=== PATIENT | female | born 1965 | race African-American/Black ===

== ENCOUNTER 2017-03-08 11:39 | Emergency (ER) | payer OTHER ==
[~2017-03-08] VITALS: Ht 170.2 cm; Wt 131.5 kg
== END 2017-03-08 13:03 | disposition home or self-care (01) ==
LOC: CED 11:39 → CFTX 11:39 → CED 13:03
DX: J04.0 Acute laryngitis (principal); I10 Essential (primary) hypertension; G43.909 Migraine, unspecified, not intractable, without status migrainosus; R00.1 Bradycardia, unspecified; Z88.0 Allergy status to penicillin
CPT/HCPCS: 87651; 99283; J1100

== ENCOUNTER 2017-04-12 17:35 | Observation (INO) | payer OTHER ==
[~2017-04-12] VITALS: Ht 170.2 cm; Wt 133.8 kg
--- NOTE | ~2017-04-12 | HP ---
Unit #: [id number] #: [id number] Patient: ANDREIA MORALES [id number] [address] [address] [id number] I MR#: [id number] NAME: ANDREIA MORALES. ROOM: 571 Age: 52 Sex: F Admission Date: 04/13/2017 : 1965 Attending Physician: Wilmar Hernandez M.D. Primary Care Physician: No Primary Care Physician HISTORY AND PHYSICAL CHIEF COMPLAINT Chest discomfort. HISTORY OF PRESENT ILLNESS Ms. Morales is a 52-year-old female who presents with complaints of chest discomfort. She states it started the night before last. It is sharp. It was constant. It is now resolved. It was across her chest. No shortness of air. No nausea. No vomiting, but she did have diarrhea. It was described as a sharp, squeezing pressure type pain. In the emergency room she received aspirin 325 mg, nitroglycerin sublingual, 1 inch nitroglycerin past, and Zofran. She also underwent a CT of the chest PE protocol. PAST MEDICAL HISTORY 1. Hypertension. 2. Migraines. 3. Anxiety. 4. Cardiovascular risk factors positive for hypertension, negative for diabetes, negative for dyslipidemia, negative for tobacco abuse, negative for premature arteriosclerotic heart disease in first degree relatives. PAST SURGICAL HISTORY 1. Cholecystectomy. 2. Bilateral tubal ligation. 3. Ankle surgery. SOCIAL HISTORY No tobacco. No alcohol. Denies illicit drug use. FAMILY HISTORY Mother has diabetes and congestive heart failure. ALLERGIES Penicillin. HOME MEDICATIONS 1. Carvedilol 12.5 mg daily. 2. Inderal 20 mg nightly. 3. Citalopram 10 mg daily. 4. Meloxicam 15 mg daily. 5. Topamax 100 mg nightly. REVIEW OF SYSTEMS Unit #: [id number] #: [id number] Patient: ANDREIA MORALES See history of present illness. Negative for fever. Negative for chills. No cough. No asthma. No COPD. No difficulty swallowing. No lower extremity edema. No orthopnea. No paroxysmal nocturnal dyspnea. No hematuria. No melena. No gait disturbance. PHYSICAL EXAMINATION GENERAL: Well-developed, well-nourished, obese female in no acute distress. VITALS: Temperature 98.3, pulse 61, respiratory rate 18, blood pressure 129/64, O2 saturation 99% on room air. Height 5'7", weight 133.8 kg. BMI 46. HEENT: Normocephalic, atraumatic. No xanthelasma. Pupils equal, round and reactive to light Extraocular movements intact. NECK: Supple. No jugular venous distension. No elevated CBC. LUNGS: Clear to auscultation anteriorly and posteriorly bilaterally, all yang. HEART: S1 and S2. No S3 or S4. No murmurs, rubs or gallops. ABDOMEN: Positive bowel sounds. Obese. No clubbing, cyanosis or edema. EXTREMITIES: Two plus pulses bilaterally all extremities. SPINE: No scoliosis. NEUROLOGIC: Awake, alert and oriented times three. Speech clear and appropriate. No facial drooping. Equal strength bilaterally. DIAGNOSTIC STUDIES IMAGING: CT of the chest, PE protocol, no evidence of pulmonary embolism. An 11 mm indeterminate pulmonary nodule in the central left lower lobe. Recommend follow-up CT in three months or PET CT. No pulmonary infiltrates. No adenopathy. LABORATORY: Sodium 138, potassium 3.4, chloride 103, CO2 26, BUN 13, creatinine 1.0, glucose 89, BUN 13, creatinine 1.0, glucose 89, total protein 7.2, albumin 3.8, AST 19, ALT 15, alkaline phosphatase 54, troponin less than 0.03, brain natriuretic peptide 16, d-dimer 616. The patient has a history of elevated d-dimer back in 2004. Nvvyx-gq-byco troponin less than 0.05 and less than 0.05. Hemoglobin 12.7, hematocrit 38.8, white blood cell count 7.3, platelet count 281. CARDIOVASCULAR: 12-lead EKG shows normal sinus rhythm. Ventricular rate of 80. No ST depression. No ST elevation. Anterolateral T wave abnormality. ASSESSMENT/PLAN 1. Chest discomfort with troponin negative times three. EKG with ischemic changes. Cardiolite treadmill stress test has been ordered. Echo has been ordered. The patient does have a history of a normal stress test back in 2004. 2. History of hypertension. We will add a lipid panel to blood in lab as well as a hemoglobin A1c. Dr. Hernandez to follow for any further recommendations. Dictated by Angela Barrett, Sharyn.Jonathan. for Wilmar Hernandez M.D. [facility]/gz TD: 04/13/2017 10:50 Unit #: [id number] #: [id number] Patient: ANDREIA MORALES JOB #: [id number] HISTORY AND PHYSICAL Page 1 of 1 X X HISTORY AND PHYSICAL
--- NOTE | ~2017-04-12 | TH ---
Unit #: [id number] #: [id number] Patient: ANDREIA MORALES [id number] [address] [address] [id number] I MR#: [id number] NAME: ANDREIA MORALES : 1965 SEX: F STUDY DATE/TIME: 04/13/2017 UNIT: [facility] ROOM: 571 STUDY DESCRIPTION: Lexiscan stress test - Nuclear Attending Physician: Wilmar Hernandez M.D. Primary Care Physician: No Primary Care Physician CARDIOLOGY REPORT PROCEDURE PERFORMED Lexiscan Cardiolite stress test - Nuclear portion. PROCEDURE Using technetium 99m-labeled Cardiolite, rest and stress SPECT images were obtained. Multiple SPECT images were obtained in various views, including horizontal and vertical long axis and short axis views of the left ventricle. Images were obtained by gated SPECT method. Patient was administered 10.71 mCi of Cardiolite at rest. Patient was administered 33.6 mCi of Cardiolite after Lexiscan infusion was completed. On the stress images, there is normal perfusion noted. The rest images show normal perfusion. Comparing the rest and stress images, there is no stress-induced ischemia noted. The left ventricular ejection fraction is calculated to be 56%. There is no focal wall motion abnormality seen. CONCLUSION 1. No stress-induced ischemia noted. 2. The left ventricular ejection fraction is calculated to be 56%. 3. There is no focal wall motion abnormality seen. 4. Normal Lexiscan Cardiolite stress test. Dictated by... Michael Garcia TD: 04/13/2017 15:29 JOB #: [id number] CARDIOLOGY REPORT Page 1 of 1 X Suma Azevedo MD <ELECTRONICALLY SIGNED> 05/03/17 1524 CARDIOLOGY REPORT
--- NOTE | ~2017-04-12 | CT16 ---
[facility] A Service of [facility] RADIOLOGY TEXT RESULTS PATIENT: ANDREIA MORALES LOCATION: [facility] : [birth year] UNIT #: [id number] AGE: [address]: Wilmar Hernandez MD SEX: F ORDER DR: [id number] [facility]. [place], [place] [address] [id number] I MR#: [id number] Acc #: [id number] NAME: ANDREIA MORALES. : 1965 SEX: F STUDY DATE/TIME: 04/12/2017 22:43 UNIT: [facility] ROOM: [facility] STUDY DESCRIPTION: CT Angio Chest for PE Attending Physician: Wilmar Hernandez M.D. Ordering Physician: Radha Baron M.D. Primary Care Physician: No Primary Care Physician MEDICAL IMAGING REPORT This report is preliminary unless electronic signature is present EXAM CT angiogram chest with IV contrast HISTORY Chest pain and shortness of air today. TECHNIQUE IV contrast and CT angiogram chest was performed with 3-D reconstructions. This CT exam was performed with one or more of the following radiation dose reduction techniques: automatic exposure control, adjustment of mA and/or kV according to patient size, and iterative reconstruction. FINDINGS No airspace infiltrates or effusions. Incidental small calcified granulomas in the posterior right lower lobe. There is an 11 mm indeterminate nodule in the central left lower lobe. Comparison to prior outside chest CTs, if available, is recommended. Otherwise, followup CT in [address] is recommended. No pulmonary embolus. Normal-caliber pulmonary arteries. Normal caliber thoracic aorta. No adenopathy. Cholecystectomy. IMPRESSION 1. No evidence of pulmonary embolus. 2. An 11 mm indeterminate pulmonary nodule in the central left lower lobe. 3. Comparison to prior outside chest CTs if available is recommended. Otherwise, followup CT chest in [address] would be recommended. 4. No pulmonary infiltrates. No adenopathy. Dictated by... [facility] A Service [facility] RADIOLOGY TEXT RESULTS PATIENT: ANDREIA MORALES LOCATION: [facility] 571-01 : [birth year] UNIT #: [id number] AGE: [address]: Wilmar Hernandez MD SEX: F ORDER DR: Steve Garcia M.D. THIS IS AN ELECTRONICALLY VERIFIED REPORT Steve Garcia M.D. at 04/13/2017 6:14 AM ANDI/mine TD: 04/13/2017 05:43 JOB #: [id number] MEDICAL IMAGING REPORT Page 1 of 1 COPY
--- NOTE | ~2017-04-12 | BMI ---
[facility] Nutrition Therapy DATE: 04/13/17 Patient: ANDREIA Hinojosa CARMEN Physician: LAURY Address: [address] Room/Bed: [address] [place] [address], Zip: [place] [address] Admit Date: 04/13/17 Date of : [birth year] Height: 5 7 Weight: 295 133.8 HIGH BMI NOTE: DX: 52 Y.O. FEMALE ADMITTED FOR CHEST PAINS ANTHROPOMETRICS: 5'7", WT: 290# (132 KG), BMI: 45 DIET: NPO RECOMMENDATIONS: 1. ONCE MEDICALLY FEASIBLE, ADVANCE DIET INDICATED TO HEALTHY HEART TO PROMOTE GRADUAL WEIGHT LOSS TOWARDS HEALTHY BMI (19.0-25.0) OR +/-10%IBW RD WILL F/U PER PROTOCOL Respectfully, MIRELLA CARR MS, RD, LD [facility] cc: client file
--- NOTE | ~2017-04-12 | EKG ---
PATIENT: ANDREIA MORALES UNIT #: [id number] Ventricular Rate: 80 BPM Atrial Rate: 80 BPM P-R Interval: 146 ms QRS Duration: 86 ms Q-T Interval: 390 ms QTC Calculation(Bezet): 449 ms P Ware: 53 degrees Calculated R Ware: -20 degrees Calculated T Ware: -20 degrees Diagnosis Line: Normal sinus rhythm Diagnosis Line: Voltage criteria for left ventricular hypertrophy Diagnosis Line: T wave abnormality, consider anterolateral Diagnosis Line: ischemia Diagnosis Line: Abnormal ECG Diagnosis Line: Diagnosis Line: Confirmed by CHEYENNE VILLAVICENCIO MD ([id number]) on Diagnosis Line: 04/13/2017 4:45:13 PM INTERPRETING MD: JAIR
--- NOTE | ~2017-04-12 | DS ---
Unit #: [id number] #: [id number] Patient: ANDREIA MORALES [id number] [address] [place], [place] [address] [id number] I MR#: [id number] NAME: ANDREIA MORALES. ROOM: 571 Age: 52 Sex: F Admission Date: 04/13/2017 : 1965 Discharge Date: 04/13/2017 Attending Physician: Wilmar Hernandez M.D. Primary Care Physician: No Primary Care Physician DISCHARGE SUMMARY HISTORY Patient was admitted with chest discomfort. Troponin negative x3. EKG negative. Has a history of hypertension. CT PE protocol was negative for pulmonary embolus but did show an 11-mm pulmonary nodule that recommended followup in 3 months. Patient underwent Cardiolite stress testing, which was negative for ischemia. She underwent two-D echocardiogram, which was normal. EF was 50 to 55%. Had mild tricuspid regurgitation. Right ventricular systolic pressure was 38 mmHg. She will [facility] in 1 to 2 weeks. Dictated by... Marita Palomino/sammi TD: 04/16/2017 14:41 JOB #: [id number] DISCHARGE SUMMARY Page 1 of 1 X X DISCHARGE SUMMARY
[2017-04-12 19:37] LABS: BASOPHIL% 0.7 % (0-2.5); EOSINOPHIL# 0.1 X10e3 (0-0.7); EOSINOPHIL% 1.7 % (0.0-7.0); HEMATOCRIT 38.8 % (35.0-45.0); HEMOGLOBIN 12.7 gm/dL (12.0-16.0); LYMPHOCYTE# 2.5 X10e3 (1.0-3.5); MEAN CELL VOLUME 80.7 FL (83-96); MEAN CORPUSCULAR HEMOGLOBIN 26.4 PG (28-34); MEAN CORPUSCULAR HGB CONC 32.7 g/dL (30-36); MEAN PLATELET VOLUME 7.8 FL (6.5-11.5); MONOCYTE# 0.7 X10e3 (0-1.0); MONOCYTE% 9.2 % (3.0-12.0); NEUTROPHIL% 54.4 % (40-75); PLATELET COUNT 281 X10e3 (140-420); RED CELL DISTRIBUTION WIDTH 15.4 % (11.0-15.5); WHITE BLOOD COUNT 7.3 X10e3 (4.0-10.5)
[2017-04-12 19:42] LABS: DIFF IND NO
[2017-04-12 19:59] LABS: ALBUMIN SERUM 3.8 g/dL (3.5-5.0); ALKALINE PHOSPHATASE 54 U/L (32-92); ALT (SGPT) 15 U/L (10-40); AST (SGOT) 19 U/L (10-42); BILIRUBIN,TOTAL 0.6 mg/dL (0.2-2.0); BLOOD UREA NITROGEN 13 mg/dL (9-23); CALCIUM SERUM 8.9 mg/dL (8.4-10.2); CARBON DIOXIDE 26 mmol/L (22-31); CHLORIDE 103 mmol/L (100-111); GLUCOSE FASTING 89 mg/dL (70-110); POTASSIUM 3.4 mmol/L (3.5-5.1); PROTEIN TOTAL SERUM 7.2 g/dL (6.0-8.3); SODIUM 138 mmol/L (135-145)
[2017-04-12 20:01] LABS: BILIRUBIN, DIRECT <0.1 mg/dL (0.0-0.2); BILIRUBIN,INDIRECT 0.5 mg/dL (0.0-0.9)
[2017-04-12] MEDS ORDERED: COREG12.5 MG PO (20:02)
[2017-04-12] MEDS ORDERED: ESCITALOPRAM OX20 MG PO (20:06)
[2017-04-12] MEDS ORDERED: MELOXICAM15 MG PO (20:06)
[2017-04-12] MEDS ORDERED: INDERAL20 MG PO (20:06)
[2017-04-12] MEDS ORDERED: TOPAMAX50 MG PO (20:07)
[2017-04-12 20:08] LABS: POC - CKMB 1.9 ng/mL (0.0-7.9); POC - TROPONIN <0.05 ng/mL (<=0.05)
[2017-04-12 21:42] LABS: POC - TROPONIN <0.05 ng/mL (<=0.05)
[2017-04-13 14:15] LABS: CHOLESTEROL 160 mg/dL (0-200); HDL CHOLESTEROL 48 mg/dL (35-95); LDL CHOLESTEROL 103 mg/dL ([, -130]); LDL/HDL RATIO 2 RATIO (0-4); TRIGLYCERIDES 46 mg/dL (10-160)
== END 2017-04-13 18:01 | disposition home or self-care (01) | DRG 313 ==
LOC: CED 17:35 → C5C 04-13 00:35 → CED 04-13 00:35 → CEDOF 04-13 00:35 → CED 04-13 00:42 → CEDOF 04-13 00:42 → C5C 04-13 01:24 → CEDOF 04-13 01:24 → C5C 04-13 18:01
PROVIDERS: Emergency Medicine
DX: R07.89 Other chest pain (principal); I10 Essential (primary) hypertension; E66.01 Morbid (severe) obesity due to excess calories; Z68.42 Body mass index [BMI] 45.0-49.9, adult; F41.9 Anxiety disorder, unspecified; Z82.49 Family history of ischemic heart disease and other diseases of the circulatory system; Z83.3 Family history of diabetes mellitus; Z90.49 Acquired absence of other specified parts of digestive tract
CPT/HCPCS: 36415; 71275; 78452; 80048; 80061; 80076; 82553; 83036; 83880; 84443; 84484; 85025; 85379; 93005; 93017; 93306; 99285; A9500; J2785; Q9967